=== PATIENT | female | born 1940 | race Caucasian/White ===

== ENCOUNTER 2016-10-10 11:17 | Emergency (ER) | payer MEDICARE, OTHER ==
[2016-10-10] MEDS ORDERED: NS 0.9% 1000 ML* 1,000 ML IV ONE (11:42)
[2016-10-10] MEDS ORDERED: Aspirin Low Dose CHEW TAB* 81 MG PO ONE (11:42)
[2016-10-10 11:50] LABS: Hematocrit 36 % (35-47); Hemoglobin 11.9 g/dl (12.0-16.0); Mean Corpuscular HGB Conc 33 g/dl (31-36); Mean Corpuscular Hemoglobin 27 pg (27-31); Mean Corpuscular Volume 84 fL (80-97); Mean Platelet Volume 9 um3 (7.4-10.4); Red Blood Count 4.34 10^6/ul (4.0-5.4); Red Cell Distribution Width 15 % (10.5-15); White Blood Count 7.8 10^3/ul (3.5-10.8)
[2016-10-10 12:04] LABS: Albumin 3.9 g/dL (3.2-5.2); Calcium 8.4 mg/dL (8.6-10.3); EGFR African American 51.8 (>60); EGFR Non-African American 40.3 (>60); Globulin 3.1 g/dL (2-4); Magnesium 1.4 mg/dL (1.9-2.7); Potassium 3.6 mmol/L (3.5-5.0); Total Bilirubin 0.4 mg/dL (0.2-1.0)
[2016-10-10 12:06] LABS: Troponin I 0.01 ng/mL (<0.04)
--- NOTE | 2016-10-10 12:14 | RAD ---
INDICATION: Chest pain, defibrillator went off. COMPARISON: Comparison is made with a prior chest x-ray study from July 07, 2015. TECHNIQUE: A portable view of the chest was obtained. FINDINGS: The heart is within normal limits in size. There is a cardiac pacemaker defibrillator present. The lungs are clear. No pleural effusion is seen. IMPRESSION: NO EVIDENCE FOR ACUTE DISEASE.
[2016-10-10 12:34] LABS: TSH (Thyroid Stimulating Horm) 0.54 mcIU/mL (0.34-5.60)
[2016-10-10] MEDS ORDERED: Magnesium Oxide TAB* 400 MG PO ONE (14:41)
[2016-10-10] MEDS ORDERED: Potassium Chlor TAB* 20 MEQ TAB.ER PO ONE (14:41)
[2016-10-10] MEDS ORDERED: Potassium Chloride LIQUID* 20 MEQ PACKET PO ONE (14:58)
[2016-10-10 15:28] VITALS: BP 110/60
--- NOTE | 2016-10-10 17:48 | ED ---
jaelyn Hammer Timothy, scribed for David Brasher MD on 10/10/16 at 1205 . HPI Chest Pain - HPI Summary HPI Summary: Christopher Mcgee is a 75 yo female presenting to [facility] after being shocked by her defibrillator at 1100 this morning. She states she was sitting on her couch when it went off. She has had her defibrillator for 7 years, and had it checked recently, within a month. She states she was coughing a lot last night, and has had some nasal discharge. She denies any current CP or SOB, as well as palpitations, leg edema. Her MHx includes DM, defibrillator, DBTS x2, nonspecific cardiomyopathy, cardiac stent 209, HTN, HLD. Her director strategic account management is Dr. Marsh. - History of Current Complaint Chief Complaint: EDDysrhythmPalp Time Seen by Provider: 10/10/16 12:00 Hx Obtained From: Patient Onset/Duration: Started Minutes Ago Time of Onset: 11:00 Timing: Lasting Seconds Initial Severity: Moderate Current Severity: Moderate Chest Pain Location: Mid Sternal Chest Pain Radiates: No Character: Other: - shock Associated Signs and Symptoms: Positive: Chest Pain - Allergy/Home Medications Allergies/Adverse Reactions: Allergies Allergy/AdvReac Type Severity Reaction Status Date / Time No Known Allergies Allergy Verified 10/10/16 11:29 Home Medications: Home Medications Aspirin EC Low Dose* [Ecotrin EC Low Dose 81 MG*] 81 mg PO DAILY 10/10/16 [ History Confirmed 10/10/16] Carvedilol TAB* [Coreg TAB*] 25 mg PO BID 10/10/16 [History Confirmed 10/10/16] PMH/Surg Hx/FS Hx/Imm Hx Cardiovascular History: Reports: Hx Coronary Artery Disease, Hx Hypercholesterolemia, Hx Hypertension, Hx Pacemaker/ICD, Other Cardiovascular Problems/Disorders - stent, nonspecific cardiomyopathy Infectious Disease History: Yes Infectious Disease History: Denies: Traveled Outside the [place] in Last 30 Days - Family History Known Family History: Positive: Cardiac Disease, Hypertension, Diabetes - Social History Alcohol Use: Rare Alcohol Amount: pt denies Substance Use Type: Reports: None Smoking Status (MU): Unknown if Ever Smoked Review of Systems Constitutional: Negative Eyes: Negative Positive: Nasal Discharge Cardiovascular: Other - defibrillator shock Positive: Cough Gastrointestinal: Negative Genitourinary: Negative Musculoskeletal: Negative Skin: Negative Neurological: Negative Psychological: Normal All Other Systems Reviewed And Are Negative: Yes Physical Exam - Summary Physical Exam Summary: The patient is well-nourished in no acute distress and in no acute pain. She appears to be a poor historian. The skin is warm and dry and skin color reflects adequate perfusion. There is decreased skin turgor. HEENT: The head is normocephalic and atraumatic. The pupils are equal and reactive. The conjunctivae are clear and without drainage. Nares are patent and without drainage. Mouth reveals moist mucous membranes and the throat is without erythema and exudate. The external ears are intact. The ear canals are patent and without drainage. The tympanic membranes are intact. Neck is supple with full range of motion and non-tender. There are no carotid bruits. There is no neck vein distension. Respiratory: Chest is non-tender. Lungs are clear to auscultation and decreased breath sounds right base. Cardiovascular: Heart is regular rate and rhythm. There is no murmur or rub auscultated. There is no peripheral edema and pulses are symmetrical and equal. Abdomen: The abdomen is soft, non-tender and obese. There are normal bowel sounds heard in all four quadrants and there is no organomegaly palpated. Musculoskeletal: There is no back pain noted. Extremities are non-tender with full range of motion. There is good capillary refill. There is no peripheral edema or calf tenderness elicited. Neurological: Patient is alert and oriented to person, place and time. The patient has symmetrical motor strength in all four extremities. Cranial nerves are grossly intact. Deep tendon reflexes are symmetrical and equal in all four extremities. Psychiatric: The patient has an appropriate affect and does not exhibit any anxiety or depression. Triage Information Reviewed: Yes Vital Signs On Initial Exam: Initial Vitals Temp Pulse Resp BP Pulse Ox 99.4 F 88 23 119/69 98 10/10/16 11:26 10/10/16 11:26 10/10/16 11:26 10/10/16 11:26 10/10/16 11:26 Vital Signs Reviewed: Yes - [place] Coma Scale Coma Scale Total: 15 Diagnostics - Vital Signs Vital Signs Temp Pulse Resp BP Pulse Ox 10/10/16 11:30 104/57 10/10/16 11:29 90 25 97 10/10/16 11:28 114/68 10/10/16 11:26 99.4 F 88 23 119/69 98 - Laboratory Lab Results: Lab Results 10/10/16 10/10/16 Range/Units 11:35 11:35 WBC 7.8 (3.5-10.8) 10^3/ul RBC 4.34 (4.0-5.4) 10^6/ul Hgb 11.9 L (12.0-16.0) g/dl Hct 36 (35-47) % MCV 84 (80-97) fL MCH 27 (27-31) pg MCHC 33 (31-36) g/dl RDW 15 (10.5-15) % Plt Count 230 (150-450) 10^3/ul MPV 9 (7.4-10.4) um3 Neut % (Auto) 87.3 H (38-83) % Lymph % (Auto) 7.6 L (25-47) % [place] % (Auto) 4.3 (1-9) % Eos % (Auto) 0.4 (0-6) % Baso % (Auto) 0.4 (0-2) % Absolute Neuts (auto) 6.8 (1.5-7.7) 10^3/ul Absolute Lymphs (auto) 0.6 L (1.0-4.8) 10^3/ul Absolute Monos (auto) 0.3 (0-0.8) 10^3/ul Absolute Eos (auto) 0 (0-0.6) 10^3/ul Absolute Basos (auto) 0 (0-0.2) 10^3/ul Absolute Nucleated RBC 0 10^3/ul Nucleated RBC % 0 APTT 25.9 L (26.0-36.3) seconds Result Diagrams: 10/10/16 11:35 10/10/16 11:35 Lab Statement: Any lab studies that have been ordered have been reviewed, and results considered in the medical decision making process. - Radiology CXR Xray Interpretation: No Acute Changes - IMPRESSION: NO EVIDENCE FOR ACUTE DISEASE. Radiology Interpretation Completed By: Radiologist - EKG 1125 Cardiac Rate: NL - 85 BPM EKG Interpretation: NSR @ 85 BPM, left axis. Old inferior wall [place]. PRWP. Re-Evaluation - Re-Evaluation First Eval Re-Evaluation Time: 14:45 Change: Unchanged Comment: Pt is in no current distress. She is agreeable to be discharged. Chest Pain Course/Dx - Course Assessment/Plan: Christopher Mcgee is a 75 yo female presenting o [facility] after her defibrillator fired earlier this morning. After clinical examination and review of her imaging and lab studies, Dr. Ospina (cardiology) was consulted with, who recommended her defibrillator be interrogated. After discussion with Dr. Marsh regarding the interrogation of her defibrillator, she will be discharged home with changes to her medications, a Dx of defibrillator fire and SVT, and appropriate instructions. - Chest Pain Differential Diagnosis/HQI/PQRI: Acute [place], Other: - ventricular tachycardia, svt , hypokalemia, hypomagnesesia - Diagnoses Provider Diagnoses: SVT (supraventricular tachycardia), Defibrillator discharge - Provider Notifications Discussed Care Of Patient With: 1246 - Dr. Ospina (cardiology) - recommends that [facility] present for assessment of the defibrillator. 1434 - Dr. Marsh ( cardiology) - recommends increase of carvedilol to 37.5 mg qam, increase KCl to 20meq qd, increase Mg 400 mg BID. 1544 - [facility] (pharmacy) - Pt cannot swallow pills, changed KCl Rx to be powder Discharge - Discharge Plan Condition: Stable Disposition: HOME Prescriptions: Magnesium Oxide (mg Supplement [Magnesium Oxide] 400 mg PO BID #60 cap Potassium Chlor TAB* [Potassium Chlor TAB 20 MEQ*] 20 meq PO DAILY #30 tab.er Patient Education Materials: Supraventricular Tachycardia (ED), Hypokalemia (ED ), Hypomagnesemia (ED) Referrals: Non Staff,Doctor [Primary Care Provider] - Bj Marsh MD [Medical Doctor] - 1 Week Additional Instructions: Please follow up with Dr. Salma Morales's Physician Tool Storage Attendant, within one week regarding your visit to the emergency department. Return to the emergency department with any new or recurring symptoms. The documentation as recorded by the jaelyn antoine Timothy accurately reflects the service I personally performed and the decisions made by me, David Brasher MD.
== END 2016-10-10 15:35 | disposition home or self-care (01) ==
LOC: ED 11:17
DX: I47.1 Supraventricular tachycardia (principal); R05 Cough; T82.198A Other mechanical complication of other cardiac electronic device, initial encounter
CPT/HCPCS: 36415; 71010; 80053; 82550; 83605; 83735; 83880; 84443; 84484; 85025; 85730; 93005; 99283; A9270-GY

== ENCOUNTER 2022-06-15 11:50 | Inpatient (IN) ==
[2022-06-15] MEDS ORDERED: Iodixanol (CONTRAST) 320 MG/ML 100 ML SDV IV ONE (12:17)
[2022-06-15 12:45] LABS: ABS Eosinophils 0.1 10^3/ul (0-0.6); ABS Lymphocytes 1.7 10^3/ul (1.0-4.8); ABS Monocytes 0.6 10^3/ul (0-0.8); ABS Neutrophils 4.3 10^3/ul (1.5-7.7); Eosinophil % 1.4 %; Hematocrit 29 % (35-47); Hemoglobin 9.6 g/dL (12.0-16.0); Lymphocyte % 25.3 %; Mean Corpuscular HGB Conc 33 g/dL (31-36); Mean Corpuscular Hemoglobin 27 pg (27-31); Mean Corpuscular Volume 81 fL (80-97); Platelet Count 254 10^3/uL (150-450); Red Blood Count 3.61 10^6 /uL (3.70-4.87); Red Cell Distribution Width 17 % (10-15); White Blood Count 6.8 10^3/uL (3.5-10.8)
[2022-06-15 13:32] LABS: Activated Partial Thrombo Time 25.8 seconds (26.0-38.0); INR 0.99 (0.89-1.11)
[2022-06-15 13:37] LABS: Albumin 3.9 g/dL (3.2-5.2); Albumin/Globulin Ratio 1.8 (1-3); Calcium 8.8 mg/dL (8.6-10.3); Globulin 2.2 g/dL (2-4); HDL Cholesterol 42.2 mg/dL; Potassium 3.5 mmol/L (3.5-5.0); Total Bilirubin 0.4 mg/dL (0.2-1.0); Total Protein 6.1 g/dL (6.4-8.9); eGFR CKD-EPI 29.3 (>60)
[2022-06-15 14:29] LABS: Urine Appearance Cloudy; Urine Bilirubin Negative (Negative); Urine Blood Negative (Negative); Urine Color Yellow; Urine Glucose Negative (Negative); Urine Ketones Negative (Negative); Urine Nitrite Negative (Negative); Urine Protein Negative (Negative); Urine Specific Gravity 1.025 (1.002-1.030); Urine Urobilinogen Negative (Negative)
[2022-06-15 14:32] LABS: Urine Bacteria 1+ (Absent); Urine Red Blood Cell Trace(0-2/hpf) (Absent); Urine Squamous Epithelial Cell Present (Absent); Urine White Blood Cell 3+(>20/hpf) (Absent)
[2022-06-15] MEDS: Enoxaparin 30 MG/0.3 ML SYR SUBCUT SCH (16:59)
[2022-06-15] MEDS ORDERED: Dextrose 50% Syringe 50 ml 25 GM/50 ML SYRINGE IV PUSH PRN (19:38)
[2022-06-16 05:47] LABS: ABS Eosinophils 0.1 10^3/ul (0-0.6); ABS Lymphocytes 1.4 10^3/ul (1.0-4.8); ABS Monocytes 0.5 10^3/ul (0-0.8); ABS Neutrophils 3.4 10^3/ul (1.5-7.7); Eosinophil % 2.1 %; Hematocrit 30 % (35-47); Hemoglobin 9.9 g/dL (12.0-16.0); Mean Corpuscular HGB Conc 33 g/dL (31-36); Mean Corpuscular Hemoglobin 27 pg (27-31); Mean Corpuscular Volume 80 fL (80-97); Mean Platelet Volume 8.7 fL (7.4-10.4); Platelet Count 244 10^3/uL (150-450); Red Blood Count 3.73 10^6 /uL (3.70-4.87); Red Cell Distribution Width 17 % (10-15); White Blood Count 5.5 10^3/uL (3.5-10.8)
[2022-06-16 06:08] LABS: Calcium 8.9 mg/dL (8.6-10.3); Magnesium 1.6 mg/dL (1.9-2.7); Potassium 3.7 mmol/L (3.5-5.0); eGFR CKD-EPI 36.8 (>60)
[2022-06-16 06:26] LABS: Ferritin 13.3 ng/mL (11-307)
[2022-06-16] MEDS ORDERED: Magnesium Sulfate IV 3 GM in NS 0.9% 100 ml BAG 100 ML IVPB ONE (07:11)
[2022-06-16] MEDS ORDERED: Aspirin EC 81 mg TAB.EC (enteric coated) PO SCH (09:00)
[2022-06-16] MEDS ORDERED: cefTRIAXone 1 gm/50 mL D5W 1 GM/50 ML BAG IV ONE (14:39)
[2022-06-16] MEDS: Enoxaparin 30 MG/0.3 ML SYR SUBCUT SCH (15:29)
[2022-06-16 16:30] VITALS: BP 137/66
== END 2022-06-16 16:30 | disposition home or self-care (01) | DRG 92 ==
LOC: ED 11:50 → EDHOLD 14:31 → MEDTELE 17:46
PROVIDERS: ADMIT Internal Medicine; ATTEND Internal Medicine

== ENCOUNTER 2022-12-24 12:29 | Inpatient (IN) ==
[2022-12-24 15:50] LABS: ABS Basophils 0.1 10^3/uL (0.0-0.1); ABS Eosinophils 0.1 10^3/uL (0.0-0.5); ABS Lymphocytes 1.6 10^3/uL (1.0-4.8); ABS Monocytes 0.8 10^3/uL (0.0-0.9); ABS Neutrophils 6.4 10^3/uL (1.5-7.6); ABS Nucleated RBC 0.01 10^3/ul; Hematocrit 32.3 % (35-45); Hemoglobin 10.7 g/dL (11.5-14.3); Lymphocyte % 17.8 %; Mean Corpuscular Hemoglobin 25.5 pg (27-33); Mean Corpuscular Volume 77.4 fL (80-97); Mean Platelet Volume 8.3 fL (7.5-11.2); Nucleated Red Blood Cells % 0.1 /100 WBC (0.0-0.4); Platelet Count 195 10^3/uL (150-450); Red Blood Count 4.17 10^6/uL (3.63-4.92); Red Cell Distribution Width 18.1 % (12-17); White Blood Count 9.1 10^3/uL (3.8-11.8)
[2022-12-24 15:55] LABS: INR 1.05 (0.88-1.18)
[2022-12-24 16:18] LABS: Albumin 4.2 g/dL (3.2-5.2); Albumin/Globulin Ratio 1.4 (1-3); Calcium 8.6 mg/dL (8.6-10.3); Creatinine, Serum 1.99 mg/dL (0.51-0.95); Potassium 3.6 mmol/L (3.5-5.0); Total Bilirubin 0.4 mg/dL (0.2-1.0); Total Protein 7.2 g/dL (6.4-8.9); eGFR CKD-EPI 24.6 (>60)
[2022-12-24] MEDS ORDERED: NS 0.9% 1000 ml BAG 1,000 ML IV ONE (17:00)
[2022-12-24 17:25] LABS: High Sensitivity Troponin 1 Hr 7 pg/mL (<15)
[2022-12-24 18:14] LABS: ABS Basophils 0.1 10^3/uL (0.0-0.1); ABS Eosinophils 0.1 10^3/uL (0.0-0.5); ABS Lymphocytes 1.8 10^3/uL (1.0-4.8); ABS Neutrophils 6.3 10^3/uL (1.5-7.6); Eosinophil % 1.1 %; Hematocrit 32.4 % (35-45); Hemoglobin 10.7 g/dL (11.5-14.3); Lymphocyte % 19.3 %; Mean Corpuscular Hemoglobin 25.9 pg (27-33); Mean Corpuscular Hgb Conc 33.1 g/dL (31-36); Mean Corpuscular Volume 78.4 fL (80-97); Mean Platelet Volume 8.3 fL (7.5-11.2); Platelet Count 190 10^3/uL (150-450); Red Blood Count 4.13 10^6/uL (3.63-4.92); White Blood Count 9.2 10^3/uL (3.8-11.8)
[2022-12-24 18:31] LABS: Creatinine, Serum 1.9 mg/dL (0.51-0.95)
[2022-12-24] MEDS: Heparin 5000 UNITS/ML 1 mL VIAL IV SCH (18:52)
[2022-12-24] MEDS: Heparin DRIP 25,000 UNITS BAG 25,000 UNITS/500 ML BAG IV SCH (18:53)
[2022-12-25 07:25] LABS: ABS Basophils 0.1 10^3/uL (0.0-0.1); ABS Eosinophils 0.1 10^3/uL (0.0-0.5); ABS Lymphocytes 1.3 10^3/uL (1.0-4.8); ABS Monocytes 0.6 10^3/uL (0.0-0.9); ABS Neutrophils 5.7 10^3/uL (1.5-7.6); Eosinophil % 1.3 %; Hemoglobin 9.8 g/dL (11.5-14.3); Mean Corpuscular Hemoglobin 26.3 pg (27-33); Mean Corpuscular Hgb Conc 33.6 g/dL (31-36); Mean Corpuscular Volume 78.3 fL (80-97); Mean Platelet Volume 8.4 fL (7.5-11.2); Platelet Count 159 10^3/uL (150-450); Red Cell Distribution Width 18.1 % (12-17); White Blood Count 7.8 10^3/uL (3.8-11.8)
[2022-12-25] MEDS: Heparin 5000 UNITS/ML 1 mL VIAL IV SCH (07:55)
[2022-12-25] MEDS ORDERED: Dextrose 50% Syringe 50 ml 25 GM/50 ML SYRINGE IV PUSH PRN (07:56)
[2022-12-25] MEDS: Heparin DRIP 25,000 UNITS BAG 25,000 UNITS/500 ML BAG IV SCH (18:50)
[2022-12-26 02:52] LABS: ABS Eosinophils 0.1 10^3/uL (0.0-0.5); ABS Lymphocytes 1.6 10^3/uL (1.0-4.8); ABS Monocytes 0.6 10^3/uL (0.0-0.9); ABS Neutrophils 4.8 10^3/uL (1.5-7.6); ABS Nucleated RBC 0.01 10^3/ul; Eosinophil % 1.7 %; Hematocrit 27.8 % (35-45); Hemoglobin 9.3 g/dL (11.5-14.3); Lymphocyte % 22.7 %; Mean Corpuscular Hemoglobin 25.7 pg (27-33); Mean Corpuscular Hgb Conc 33.3 g/dL (31-36); Mean Corpuscular Volume 77.2 fL (80-97); Mean Platelet Volume 8.7 fL (7.5-11.2); Nucleated Red Blood Cells % 0.1 /100 WBC (0.0-0.4); Platelet Count 165 10^3/uL (150-450); Red Blood Count 3.61 10^6/uL (3.63-4.92); Red Cell Distribution Width 18.2 % (12-17); White Blood Count 7.2 10^3/uL (3.8-11.8)
[2022-12-26 03:06] LABS: Creatinine, Serum 1.77 mg/dL (0.51-0.95); eGFR CKD-EPI 28.3 (>60)
[2022-12-26 16:27] LABS: Hematocrit 28.6 % (35-45); Hemoglobin 9.6 g/dL (11.5-14.3)
[2022-12-26] MEDS: Heparin 5000 UNITS/ML 1 mL VIAL IV SCH (16:53)
[2022-12-26 16:56] LABS: Ferritin 36.6 ng/mL (11-307)
[2022-12-26] MEDS: Iron Sucrose 200 MG in NS 0.9% 100 ml IVPB SCH (17:52)
[2022-12-26] MEDS ORDERED: Iron Sucrose 20 MG/ML 5 ML VIAL IV PUSH SCH (18:00)
[2022-12-26] MEDS: Heparin DRIP 25,000 UNITS BAG 25,000 UNITS/500 ML BAG IV SCH (23:39)
[2022-12-27 06:23] LABS: ABS Eosinophils 0.2 10^3/uL (0.0-0.5); ABS Lymphocytes 1.6 10^3/uL (1.0-4.8); ABS Monocytes 0.6 10^3/uL (0.0-0.9); ABS Neutrophils 4.5 10^3/uL (1.5-7.6); Eosinophil % 2.3 %; Hematocrit 28.9 % (35-45); Hemoglobin 9.7 g/dL (11.5-14.3); Mean Corpuscular Hgb Conc 33.4 g/dL (31-36); Mean Corpuscular Volume 77.8 fL (80-97); Mean Platelet Volume 8.8 fL (7.5-11.2); Platelet Count 178 10^3/uL (150-450); Red Blood Count 3.72 10^6/uL (3.63-4.92); Red Cell Distribution Width 18.1 % (12-17); White Blood Count 6.8 10^3/uL (3.8-11.8)
[2022-12-27] MEDS: Iron Sucrose 200 MG in NS 0.9% 100 ml IVPB SCH (09:00)
[2022-12-28] MEDS: Heparin DRIP 25,000 UNITS BAG 25,000 UNITS/500 ML BAG IV SCH (03:54)
[2022-12-28 06:33] LABS: ABS Eosinophils 0.2 10^3/uL (0.0-0.5); ABS Lymphocytes 1.6 10^3/uL (1.0-4.8); ABS Monocytes 0.6 10^3/uL (0.0-0.9); ABS Neutrophils 4.5 10^3/uL (1.5-7.6); Eosinophil % 2.5 %; Hematocrit 29.7 % (35-45); Hemoglobin 9.9 g/dL (11.5-14.3); Mean Corpuscular Hemoglobin 26.2 pg (27-33); Mean Corpuscular Hgb Conc 33.3 g/dL (31-36); Mean Corpuscular Volume 78.7 fL (80-97); Mean Platelet Volume 8.8 fL (7.5-11.2); Platelet Count 212 10^3/uL (150-450); Red Blood Count 3.77 10^6/uL (3.63-4.92); Red Cell Distribution Width 18.9 % (12-17); White Blood Count 6.8 10^3/uL (3.8-11.8)
[2022-12-28 06:59] LABS: Creatinine, Serum 1.66 mg/dL (0.51-0.95); eGFR CKD-EPI 30.6 (>60)
[2022-12-28] MEDS ORDERED: Lidocaine 1% VIAL 10 MG/ML VIAL 30 ML ONE ×2 (07:45→09:40)
[2022-12-28] MEDS ORDERED: Midazolam 5 mg/5 ml VIAL 1 mg/ml 5 ml VIAL (5 mg) ONE (07:45)
[2022-12-28] MEDS ORDERED: Heparin 2 UNITS/ML IVPREMIX 2,000 UNIT/1,000 ML BAG IV ONE (07:45)
[2022-12-28] MEDS ORDERED: Iohexol 350 (CONTRAST) 100 ML PAK IV ONE (07:45)
[2022-12-28] MEDS ORDERED: Heparin 1,000 UNIT/ML 10 ml (10,000 UNITS) CATHLAB/DIALYSIS ONE (07:45)
[2022-12-28] MEDS ORDERED: fentaNYL 100 mcg/2 ml 50 MCG/ML VIAL ONE ×3 (07:45→10:57)
[2022-12-28] MEDS ORDERED: Heparin 2 UNITS/ML IVPREMIX 1,000 UNIT/500 ML BAG IV ONE ×3 (08:04→10:45)
[2022-12-28] MEDS ORDERED: Iodixanol 320 (CONTRAST) 100 ML SDV ONE (08:06)
[2022-12-28] MEDS: Iron Sucrose 200 MG in NS 0.9% 100 ml IVPB SCH (14:11)
[2022-12-28 18:02] VITALS: BP 133/59
== END 2022-12-28 18:56 | disposition home or self-care (01) | DRG 270 ==
LOC: ED 12:29 → EDHOLD 12:29 → SUATTDRO 17:22 → MEDTELE 21:50
PROVIDERS: ADMIT Internal Medicine; ATTEND Internal Medicine

== ENCOUNTER 2023-03-01 09:29 | Observation (INO) ==
[2023-03-01 10:51] LABS: ABS Eosinophils 0.1 10^3/uL (0.0-0.5); ABS Lymphocytes 1.4 10^3/uL (1.0-4.8); ABS Monocytes 0.5 10^3/uL (0.0-0.9); ABS Neutrophils 3.6 10^3/uL (1.5-7.6); ABS Nucleated RBC 0.01 10^3/ul; Eosinophil % 1.3 %; Hematocrit 33.8 % (35-45); Hemoglobin 11.3 g/dL (11.5-14.3); Lymphocyte % 25.3 %; Mean Corpuscular Hemoglobin 28.1 pg (27-33); Mean Corpuscular Hgb Conc 33.4 g/dL (31-36); Mean Corpuscular Volume 84.1 fL (80-97); Mean Platelet Volume 8.4 fL (7.5-11.2); Nucleated Red Blood Cells % 0.1 /100 WBC (0.0-0.4); Platelet Count 221 10^3/uL (150-450); Red Blood Count 4.02 10^6/uL (3.63-4.92); Red Cell Distribution Width 18.4 % (12-17); White Blood Count 5.6 10^3/uL (3.8-11.8)
[2023-03-01 11:04] LABS: Albumin 3.7 g/dL (3.2-5.2); Albumin/Globulin Ratio 1.3 (1-3); Calcium 8.8 mg/dL (8.6-10.3); Creatinine, Serum 1.69 mg/dL (0.51-0.95); Globulin 2.8 g/dL (2-4); Potassium 3.6 mmol/L (3.5-5.0); Total Bilirubin 0.4 mg/dL (0.2-1.0); Total Protein 6.5 g/dL (6.4-8.9)
[2023-03-01 11:05] LABS: INR 1.38 (0.88-1.18)
[2023-03-01 12:03] LABS: High Sensitivity Troponin 1 Hr 6 pg/mL (<15)
[2023-03-01 13:16] LABS: HDL Cholesterol 37.8 mg/dL
[2023-03-01 17:40] LABS: Urine Appearance Clear; Urine Bilirubin Negative (Negative); Urine Blood Negative (Negative); Urine Color Straw; Urine Glucose 3+(>=500 mg/dL) (Negative); Urine Ketones Negative (Negative); Urine Nitrite Negative (Negative); Urine Protein Negative (Negative); Urine Specific Gravity 1.013 (1.002-1.030); Urine Urobilinogen Negative (Negative)
[2023-03-01 17:55] LABS: Urine Bacteria Absent (Absent); Urine Red Blood Cell Absent (Absent); Urine Squamous Epithelial Cell Present (Absent); Urine White Blood Cell Trace(0-5/hpf) (Absent)
[2023-03-02 06:23] LABS: ABS Eosinophils 0.1 10^3/uL (0.0-0.5); ABS Lymphocytes 1.5 10^3/uL (1.0-4.8); ABS Monocytes 0.5 10^3/uL (0.0-0.9); ABS Neutrophils 3.3 10^3/uL (1.5-7.6); ABS Nucleated RBC 0.01 10^3/ul; Eosinophil % 1.8 %; Hemoglobin 10.8 g/dL (11.5-14.3); Lymphocyte % 27.6 %; Mean Corpuscular Hemoglobin 28.1 pg (27-33); Mean Corpuscular Hgb Conc 33.7 g/dL (31-36); Mean Corpuscular Volume 83.2 fL (80-97); Mean Platelet Volume 8.6 fL (7.5-11.2); Nucleated Red Blood Cells % 0.1 /100 WBC (0.0-0.4); Platelet Count 203 10^3/uL (150-450); Red Blood Count 3.84 10^6/uL (3.63-4.92); Red Cell Distribution Width 18.5 % (12-17); White Blood Count 5.5 10^3/uL (3.8-11.8)
[2023-03-02 06:39] LABS: Calcium 8.8 mg/dL (8.6-10.3); Creatinine, Serum 1.61 mg/dL (0.51-0.95); Magnesium 1.6 mg/dL (1.9-2.7); Potassium 3.8 mmol/L (3.5-5.0); eGFR CKD-EPI 31.8 (>60)
[2023-03-03 06:41] LABS: ABS Eosinophils 0.1 10^3/uL (0.0-0.5); ABS Lymphocytes 1.6 10^3/uL (1.0-4.8); ABS Monocytes 0.6 10^3/uL (0.0-0.9); ABS Neutrophils 3.2 10^3/uL (1.5-7.6); Eosinophil % 1.4 %; Hematocrit 34.2 % (35-45); Hemoglobin 11.5 g/dL (11.5-14.3); Lymphocyte % 28.9 %; Mean Corpuscular Hemoglobin 27.9 pg (27-33); Mean Corpuscular Hgb Conc 33.5 g/dL (31-36); Mean Corpuscular Volume 83.2 fL (80-97); Mean Platelet Volume 8.7 fL (7.5-11.2); Platelet Count 205 10^3/uL (150-450); Red Blood Count 4.12 10^6/uL (3.63-4.92); Red Cell Distribution Width 18.6 % (12-17); White Blood Count 5.5 10^3/uL (3.8-11.8)
[2023-03-03 07:01] LABS: Calcium 8.8 mg/dL (8.6-10.3); Creatinine, Serum 1.54 mg/dL (0.51-0.95); Magnesium 1.6 mg/dL (1.9-2.7); Potassium 3.9 mmol/L (3.5-5.0); eGFR CKD-EPI 33.5 (>60)
[2023-03-03] MEDS ORDERED: Magnesium Sulfate 2 gm BAG 2 GM/50 ML BAG IVPB ONE (11:18)
[2023-03-03] MEDS ORDERED: Iodixanol (CONTRAST) 320 MG/ML 100 ML SDV IV ONE (11:54)
[2023-03-03 14:46] VITALS: BP 122/55
== END 2023-03-03 16:50 | disposition home or self-care (01) ==
LOC: ED 09:29 → EDHOLD 09:29 → SUATTDRO 12:02 → MEDTELE 15:54
PROVIDERS: ADMIT Internal Medicine; ATTEND Student in an Organized Health Care Education/Training Program

== ENCOUNTER 2023-07-30 22:46 | Inpatient (IN) ==
[2023-07-31] MEDS ORDERED: Acetaminophen IV 1 GM/100ML 1,000 MG/100 ML BAG IV ONE (00:39)
[2023-07-31 01:25] LABS: ABS Eosinophils 0.1 10^3/uL (0.0-0.5); ABS Lymphocytes 1.8 10^3/uL (1.0-4.8); ABS Monocytes 0.8 10^3/uL (0.0-0.9); ABS Neutrophils 10.9 10^3/uL (1.5-7.6); Eosinophil % 0.4 %; Hematocrit 36.9 % (35-45); Hemoglobin 12.2 g/dL (11.5-14.3); Lymphocyte % 13.3 %; Mean Corpuscular Hemoglobin 27.7 pg (27-33); Mean Corpuscular Hgb Conc 32.9 g/dL (31-36); Mean Corpuscular Volume 84.1 fL (80-97); Mean Platelet Volume 9.3 fL (7.5-11.2); Platelet Count 211 10^3/uL (150-450); Red Blood Count 4.39 10^6/uL (3.63-4.92); White Blood Count 13.6 10^3/uL (3.8-11.8)
[2023-07-31 01:45] LABS: Albumin 4.1 g/dL (3.2-5.2); Albumin/Globulin Ratio 1.3 (1-3); Globulin 3.2 g/dL (2-4); Potassium 3.3 mmol/L (3.5-5.0); Total Bilirubin 0.4 mg/dL (0.2-1.0); Total Protein 7.3 g/dL (6.4-8.9); eGFR CKD-EPI 24.5 (>60)
[2023-07-31] MEDS ORDERED: Lactated Ringers 1000 ml BAG 1,000 ML IV ONE ×2 (01:59→04:53)
[2023-07-31] MEDS ORDERED: Azithromycin 500 mg/250 ml NS 500 MG/250 ML BAG IVPB ONE (02:10)
[2023-07-31] MEDS ORDERED: cefTRIAXone 1 gm/50 mL D5W 1 GM/50 ML BAG IV ONE (02:10)
[2023-07-31] MEDS ORDERED: Dextrose 50% Syringe 50 ml 25 GM/50 ML SYRINGE IV PUSH PRN ×2 (04:42→21:32)
[2023-07-31] MEDS ORDERED: Albuterol/Ipratropium NEB.SOL (2.5/0.5 MG) 3 ML NEB.SOLN INH ONE (04:59)
[2023-07-31 05:07] LABS: Magnesium 2.1 mg/dL (1.9-2.7)
[2023-07-31] MEDS ORDERED: Albuterol HFA INHALER 8 gm MDI INH PRN (05:27)
[2023-07-31] MEDS ORDERED: Potassium Chlor 20 meq TAB.ER PO ONE (05:29)
[2023-07-31] MEDS ORDERED: Furosemide 20 mg/2 ml IV VIAL IV SLOW PU ONE (05:39)
[2023-07-31 06:23] LABS: Activated Partial Thrombo Time 26.3 seconds (26.0-38.0); INR 1.16 (0.83-1.13)
[2023-07-31] MEDS ORDERED: Heparin 5000 UNITS/ML 1 mL VIAL SUBCUT SCH (09:00)
[2023-07-31 10:04] LABS: Urine Appearance Clear; Urine Bilirubin Negative (Negative); Urine Blood Negative (Negative); Urine Color Straw; Urine Glucose 3+(>=500 mg/dL) (Negative); Urine Ketones Negative (Negative); Urine Nitrite Negative (Negative); Urine Protein Negative (Negative); Urine Urobilinogen Negative (Negative)
[2023-07-31] MEDS: HYDROmorphone 0.5 MG/0.5 ML SYRINGE IV SLOW PU PRN ×2 (10:08→22:51)
[2023-07-31] MEDS ORDERED: Furosemide 20 mg/2 ml IV VIAL IV ONE (13:58)
[2023-07-31] MEDS ORDERED: Furosemide 20 mg/2 ml IV VIAL ONE (14:11)
[2023-08-01 06:17] LABS: ABS Eosinophils 0.2 10^3/uL (0.0-0.5); ABS Lymphocytes 1.5 10^3/uL (1.0-4.8); ABS Monocytes 0.6 10^3/uL (0.0-0.9); ABS Neutrophils 8.2 10^3/uL (1.5-7.6); ABS Nucleated RBC 0.01 10^3/ul; Eosinophil % 1.5 %; Hematocrit 33.4 % (35-45); Hemoglobin 11.1 g/dL (11.5-14.3); Lymphocyte % 14.6 %; Mean Corpuscular Hemoglobin 27.8 pg (27-33); Mean Corpuscular Hgb Conc 33.3 g/dL (31-36); Mean Corpuscular Volume 83.5 fL (80-97); Mean Platelet Volume 9.5 fL (7.5-11.2); Platelet Count 159 10^3/uL (150-450); Red Cell Distribution Width 15.7 % (12-17); White Blood Count 10.6 10^3/uL (3.8-11.8)
[2023-08-01 06:35] LABS: Magnesium 1.7 mg/dL (1.9-2.7); eGFR CKD-EPI 24.5 (>60)
[2023-08-01] MEDS ORDERED: Magnesium Sulfate 2 gm BAG 2 GM/50 ML BAG IVPB ONE (07:30)
[2023-08-01] MEDS ORDERED: Potassium EFFERVES 25 meq TAB PO ONE (08:00)
[2023-08-01] MEDS ORDERED: HYDROmorphone 0.5 MG/0.5 ML SYRINGE IV SLOW PU PRN (08:48)
[2023-08-02] MEDS ORDERED: Magnesium Hydroxide LIQ 30 ML UDC PO PRN (03:56)
[2023-08-02] MEDS ORDERED: Polyethylene Glycol 3350 17 GM PACKET PO PRN (03:56)
[2023-08-02] MEDS ORDERED: Senna TAB 8.6 mg TAB PO PRN (03:56)
[2023-08-02 06:57] LABS: ABS Eosinophils 0.2 10^3/uL (0.0-0.5); ABS Lymphocytes 1.5 10^3/uL (1.0-4.8); ABS Monocytes 0.5 10^3/uL (0.0-0.9); ABS Neutrophils 5.4 10^3/uL (1.5-7.6); Hematocrit 31.4 % (35-45); Hemoglobin 10.5 g/dL (11.5-14.3); Lymphocyte % 19.7 %; Mean Corpuscular Hemoglobin 27.9 pg (27-33); Mean Corpuscular Hgb Conc 33.5 g/dL (31-36); Mean Corpuscular Volume 83.1 fL (80-97); Mean Platelet Volume 9.5 fL (7.5-11.2); Platelet Count 157 10^3/uL (150-450); Red Blood Count 3.78 10^6/uL (3.63-4.92); Red Cell Distribution Width 15.7 % (12-17); White Blood Count 7.5 10^3/uL (3.8-11.8)
[2023-08-02 07:05] LABS: Calcium 8.2 mg/dL (8.6-10.3); Creatinine, Serum 1.81 mg/dL (0.51-0.95); Magnesium 2.4 mg/dL (1.9-2.7); Potassium 3.3 mmol/L (3.5-5.0); eGFR CKD-EPI 27.6 (>60)
[2023-08-02] MEDS ORDERED: Potassium EFFERVES 25 meq TAB PO ONE (07:29)
[2023-08-02] MEDS: Nystatin TOP POWDER 15 GM BTL TOPICAL SCH (10:00)
[2023-08-03] MEDS: Nystatin TOP POWDER 15 GM BTL TOPICAL SCH ×2 (01:50→10:42)
[2023-08-03 06:35] LABS: ABS Eosinophils 0.2 10^3/uL (0.0-0.5); ABS Lymphocytes 1.6 10^3/uL (1.0-4.8); ABS Monocytes 0.5 10^3/uL (0.0-0.9); ABS Neutrophils 4.9 10^3/uL (1.5-7.6); ABS Nucleated RBC 0.01 10^3/ul; Eosinophil % 2.4 %; Hematocrit 31.7 % (35-45); Hemoglobin 10.8 g/dL (11.5-14.3); Lymphocyte % 21.8 %; Mean Corpuscular Hemoglobin 28.2 pg (27-33); Mean Corpuscular Hgb Conc 33.9 g/dL (31-36); Mean Corpuscular Volume 83.3 fL (80-97); Mean Platelet Volume 9.7 fL (7.5-11.2); Nucleated Red Blood Cells % 0.1 %/100WBC (0.0-0.8); Platelet Count 168 10^3/uL (150-450); Red Blood Count 3.81 10^6/uL (3.63-4.92); Red Cell Distribution Width 16.4 % (12-17); White Blood Count 7.2 10^3/uL (3.8-11.8)
[2023-08-03 06:51] LABS: Calcium 8.4 mg/dL (8.6-10.3); Creatinine, Serum 1.6 mg/dL (0.51-0.95)
[2023-08-03 11:15] VITALS: BP 110/70
== END 2023-08-03 13:45 | disposition home or self-care (01) | DRG 535 ==
LOC: ED 22:46 → EDHOLD 07-31 03:19 → SUATTDRO 07-31 03:19 → SSU 07-31 07:42 → MED 08-01 18:45
PROVIDERS: ADMIT Internal Medicine; ATTEND Hospitalist

== ENCOUNTER 2023-10-13 14:27 | Observation (INO) ==
[2023-10-13 15:48] LABS: Urine Appearance Turbid; Urine Bilirubin Negative (Negative); Urine Blood 1+ (Negative); Urine Color Yellow; Urine Glucose Negative (Negative); Urine Ketones Negative (Negative); Urine Nitrite Negative (Negative); Urine Protein Trace (Negative); Urine Urobilinogen Negative (Negative); Urine pH 5.5 (5.0-8.0)
[2023-10-13 15:56] LABS: Urine Bacteria 3+ /HPF (Absent); Urine Red Blood Cell 2+(6-10/hpf) /HPF (0-Trace); Urine Squamous Epithelial Cell Present /HPF (Absent); Urine White Blood Cell 3+(>20/hpf) /HPF (0-Trace)
[2023-10-13] MEDS: cefTRIAXone 1 gm/50 mL D5W 1 GM/50 ML BAG IV ONE (17:27)
[2023-10-13] MEDS: NS 0.9% 500 ml BAG 500 ML IV ONE (17:28)
[2023-10-13] MEDS: Albuterol/Ipratropium NEB.SOL (2.5/0.5 MG) 3 ML NEB.SOLN INH ONE (18:16)
[2023-10-13 19:10] LABS: ABS Basophils 0.1 10^3/uL (0.0-0.1); ABS Eosinophils 0.2 10^3/uL (0.0-0.5); ABS Lymphocytes 2.5 10^3/uL (1.0-4.8); ABS Monocytes 0.7 10^3/uL (0.0-0.9); ABS Neutrophils 6.2 10^3/uL (1.5-7.6); ABS Nucleated RBC 0.03 10^3/ul; Eosinophil % 2.4 %; Hematocrit 31.8 % (35-45); Hemoglobin 10.5 g/dL (11.5-14.3); Lymphocyte % 25.4 %; Mean Corpuscular Hgb Conc 32.9 g/dL (31-36); Mean Platelet Volume 8.5 fL (7.5-11.2); Nucleated Red Blood Cells % 0.3 %/100WBC (0.0-0.8); Platelet Count 269 10^3/uL (150-450); Red Blood Count 3.88 10^6/uL (3.63-4.92); Red Cell Distribution Width 15.9 % (12-17); White Blood Count 9.7 10^3/uL (3.8-11.8)
[2023-10-13 19:23] LABS: High Sens Troponin Baseline 7 pg/mL (<15)
[2023-10-13 20:04] LABS: ALT 13 U/L (7-52); AST 16 U/L (13-39); Albumin 3.5 g/dL (3.2-5.2); Albumin/Globulin Ratio 1.2 (1-3); Alkaline Phosphatase 131 U/L (35-149); Anion Gap 10 mmol/L (2-16); Blood Urea Nitrogen 34 mg/dL (6-24); C Reactive Protein 98.34 mg/L (<8.01); CO2 Carbon Dioxide 29 mmol/L (22-32); Chloride 103 mmol/L (101-111); Creatinine, Serum 1.51 mg/dL (0.51-0.95); Globulin 2.9 g/dL (2-4); Glucose 109 mg/dL (70-100); Magnesium 1.5 mg/dL (1.9-2.7); Phosphorus 3.5 mg/dL (2.5-5.0); Potassium 3.3 mmol/L (3.5-5.0); Sodium 142 mmol/L (135-145); Total Bilirubin 0.3 mg/dL (0.2-1.0); Total Protein 6.4 g/dL (6.4-8.9); eGFR CKD-EPI 34.3 (>60)
[2023-10-13 20:40] LABS: High Sensitivity Troponin 1 Hr 7 pg/mL (<15)
[2023-10-13] MEDS: Acetaminophen IV 1 GM/100ML 1,000 MG/100 ML BAG IV ONE (21:10)
[2023-10-13 22:40] LABS: TSH Ultra Thyroid Stim Horm 1.68 mcIU/mL (0.34-5.60)
[2023-10-13 22:51] LABS: Vitamin B12 454 pg/mL (180-914)
[2023-10-13 22:54] LABS: Vitamin D Total 25(OH) 42.4 ng/mL (20-50)
[2023-10-13] MEDS ORDERED: Dextrose 50% Syringe 50 ml 25 GM/50 ML SYRINGE IV PUSH PRN (23:51)
[2023-10-13] MEDS ORDERED: Albuterol HFA INHALER 8 gm MDI INH PRN (23:51)
[2023-10-14 01:05] LABS: % Iron Saturation 6 % (15-55); .Transferrin 233 mg/dL (203-362); Iron < 20 ug/dL (50-212); Total Iron Binding Capacity 326 mcg/dL (250-450); Unsaturated Iron Binding 306 ug/dL
[2023-10-14] MEDS: Lactated Ringers 1000 ml BAG 1,000 ML IV SCH (01:10)
[2023-10-14 01:26] LABS: Ferritin 66.2 ng/mL (11-307)
[2023-10-14] MEDS: Magnesium Sulf 4 GM/100 ML IV 4,000 MG/100 ML BAG IVPB ONE (04:46)
[2023-10-14] MEDS: Potassium Chlor 20 meq TAB.ER PO ONE (04:51)
[2023-10-14] MEDS: Ferric Gluconate IV 250 MG in NS 0.9% 250 ml 200 ML IVPB SCH ×2 (06:31→09:38)
[2023-10-14 06:43] LABS: ABS Eosinophils 0.2 10^3/uL (0.0-0.5); ABS Lymphocytes 1.7 10^3/uL (1.0-4.8); ABS Monocytes 0.5 10^3/uL (0.0-0.9); ABS Neutrophils 4.4 10^3/uL (1.5-7.6); ABS Nucleated RBC 0.02 10^3/ul; Eosinophil % 2.9 %; Hematocrit 32.4 % (35-45); Hemoglobin 10.2 g/dL (11.5-14.3); Lymphocyte % 25.2 %; Mean Corpuscular Hemoglobin 27.1 pg (27-33); Mean Corpuscular Hgb Conc 31.7 g/dL (31-36); Mean Corpuscular Volume 85.6 fL (80-97); Mean Platelet Volume 8.5 fL (7.5-11.2); Nucleated Red Blood Cells % 0.2 %/100WBC (0.0-0.8); Platelet Count 227 10^3/uL (150-450); Red Blood Count 3.78 10^6/uL (3.63-4.92); Red Cell Distribution Width 16.4 % (12-17); White Blood Count 6.9 10^3/uL (3.8-11.8)
[2023-10-14 06:51] LABS: Calcium 7.8 mg/dL (8.6-10.3); Creatinine, Serum 1.39 mg/dL (0.51-0.95); Potassium 3.1 mmol/L (3.5-5.0); eGFR CKD-EPI 37.9 (>60)
[2023-10-14] MEDS: Insulin GLARGINE 100 un/ml 10 ml VIAL SUBCUT SCH (08:16)
[2023-10-14] MEDS: Potassium Chloride LIQUID 20 MEQ/15 ML LIQUID PO ONE (08:17)
[2023-10-14 08:22] LABS: Magnesium 1.7 mg/dL (1.9-2.7)
[2023-10-14] MEDS: Magnesium Sulfate 2 gm BAG 2 GM/50 ML BAG IVPB ONE (16:04)
[2023-10-14] MEDS: cefTRIAXone 1 gm/50 mL D5W 1 GM/50 ML BAG IV SCH (17:08)
[2023-10-14] MEDS: Enoxaparin 80 MG/0.8 ML SYR SUBCUT SCH (20:46)
[2023-10-15 09:07] LABS: Calcium 8.7 mg/dL (8.6-10.3); Creatinine, Serum 1.32 mg/dL (0.51-0.95); Magnesium 2.5 mg/dL (1.9-2.7); Potassium 4.1 mmol/L (3.5-5.0); eGFR CKD-EPI 40.3 (>60)
[2023-10-15] MEDS: guaiFENesin 100 mg/5 ml LIQ unit dose cup PO PRN (12:58)
[2023-10-15 13:34] VITALS: BP 127/81
== END 2023-10-15 14:10 | disposition home or self-care (01) ==
LOC: ED 14:27 → EDHOLD 14:27 → MEDTELE 22:29
PROVIDERS: ADMIT Student in an Organized Health Care Education/Training Program; ATTEND Hospitalist

== ENCOUNTER 2023-12-17 16:18 | Observation (INO) ==
[2023-12-17 17:58] LABS: ABS Eosinophils 0.3 10^3/uL (0.0-0.5); ABS Lymphocytes 2.1 10^3/uL (1.0-4.8); ABS Monocytes 0.6 10^3/uL (0.0-0.9); ABS Neutrophils 3.5 10^3/uL (1.5-7.6); Eosinophil % 3.9 %; Hematocrit 35.8 % (35-45); Hemoglobin 11.9 g/dL (11.5-14.3); Lymphocyte % 32.1 %; Mean Corpuscular Hemoglobin 27.6 pg (27-33); Mean Corpuscular Hgb Conc 33.2 g/dL (31-36); Mean Corpuscular Volume 83.1 fL (80-97); Mean Platelet Volume 8.8 fL (7.5-11.2); Nucleated Red Blood Cells % 0.1 %/100WBC (0.0-0.8); Platelet Count 229 10^3/uL (150-450); Red Blood Count 4.31 10^6/uL (3.63-4.92); Red Cell Distribution Width 17.2 % (12-17); White Blood Count 6.5 10^3/uL (3.8-11.8)
[2023-12-17] MEDS: Albuterol (2.5 MG) 0.5 % CONC 0.5 ML NEB.SOLN INH ONE (18:40)
[2023-12-17 18:54] LABS: Albumin 3.9 g/dL (3.2-5.2); Albumin/Globulin Ratio 1.3 (1-3); C Reactive Protein 9.94 mg/L (<8.01); Calcium 8.8 mg/dL (8.6-10.3); Creatinine, Serum 1.62 mg/dL (0.51-0.95); Globulin 2.9 g/dL (2-4); Total Bilirubin 0.3 mg/dL (0.2-1.0); Total Protein 6.8 g/dL (6.4-8.9); eGFR CKD-EPI 31.3 (>60)
[2023-12-17 19:10] LABS: Potassium 3.6 mmol/L (3.5-5.0)
[2023-12-17 19:24] LABS: High Sensitivity Troponin 1 Hr 10 pg/mL (<15)
[2023-12-17] MEDS: Iodixanol (CONTRAST) 320 MG/ML 100 ML SDV IV ONE (19:40)
[2023-12-18] MEDS: Furosemide 40 mg/4 ml IV VIAL IV SLOW PU ONE (00:09)
[2023-12-18] MEDS ORDERED: Polyethylene Glycol 3350 17 GM PACKET PO PRN (00:14)
[2023-12-18] MEDS ORDERED: Senna TAB 8.6 mg TAB PO PRN (00:14)
[2023-12-18] MEDS ORDERED: Albuterol HFA INHALER 8 gm MDI INH PRN (00:34)
[2023-12-18] MEDS: guaiFENesin 100 mg/5 ml LIQ unit dose cup PO PRN (02:47)
[2023-12-18 08:45] LABS: ABS Eosinophils 0.3 10^3/uL (0.0-0.5); ABS Lymphocytes 1.7 10^3/uL (1.0-4.8); ABS Monocytes 0.5 10^3/uL (0.0-0.9); ABS Neutrophils 3.6 10^3/uL (1.5-7.6); Eosinophil % 4.5 %; Hematocrit 34.1 % (35-45); Hemoglobin 11.3 g/dL (11.5-14.3); Lymphocyte % 27.7 %; Mean Corpuscular Hemoglobin 26.9 pg (27-33); Mean Corpuscular Volume 81.6 fL (80-97); Mean Platelet Volume 8.3 fL (7.5-11.2); Nucleated Red Blood Cells % 0.1 %/100WBC (0.0-0.8); Platelet Count 230 10^3/uL (150-450); Red Blood Count 4.18 10^6/uL (3.63-4.92); Red Cell Distribution Width 17.2 % (12-17); White Blood Count 6.1 10^3/uL (3.8-11.8)
[2023-12-18] MEDS ORDERED: Furosemide 40 mg/4 ml IV VIAL IV SCH (09:00)
[2023-12-18 09:20] LABS: Calcium 8.8 mg/dL (8.6-10.3); Creatinine, Serum 1.43 mg/dL (0.51-0.95); Magnesium 1.7 mg/dL (1.9-2.7); Potassium 3.6 mmol/L (3.5-5.0); eGFR CKD-EPI 36.4 (>60)
[2023-12-18] MEDS: Furosemide 40 mg/4 ml IV VIAL IV ONE (09:40)
[2023-12-18] MEDS: Nystatin TOP POWDER 15 GM BTL TOPICAL SCH (09:47)
[2023-12-18 13:59] VITALS: BP 99/70
== END 2023-12-18 15:22 | disposition home or self-care (01) ==
LOC: ED 16:18 → EDHOLD 16:18 → SUATTDRO 22:37 → MED 12-18 01:38
PROVIDERS: ADMIT Internal Medicine; ATTEND Internal Medicine

== ENCOUNTER 2024-04-29 11:55 | Observation (INO) ==
[2024-04-29] MEDS: Iodixanol (CONTRAST) 320 MG/ML 100 ML SDV IV ONE (12:25)
[2024-04-29 12:28] LABS: ABS Eosinophils 0.1 10^3/uL (0.0-0.5); ABS Lymphocytes 1.6 10^3/uL (1.0-4.8); ABS Monocytes 0.4 10^3/uL (0.0-0.9); Eosinophil % 1.9 %; Hematocrit 36.6 % (35-45); Lymphocyte % 26.4 %; Mean Corpuscular Hemoglobin 27.9 pg (27-33); Mean Corpuscular Hgb Conc 32.7 g/dL (31-36); Mean Corpuscular Volume 85.3 fL (80-97); Mean Platelet Volume 8.9 fL (7.5-11.2); Platelet Count 202 10^3/uL (150-450); Red Blood Count 4.29 10^6/uL (3.63-4.92); Red Cell Distribution Width 17.4 % (12-17); White Blood Count 6.2 10^3/uL (3.8-11.8)
[2024-04-29 12:43] LABS: Activated Partial Thrombo Time 33.8 seconds (26.0-38.0); INR 1.64 (0.85-1.14)
[2024-04-29 13:16] LABS: Urine Appearance Clear; Urine Bilirubin Negative (Negative); Urine Blood Negative (Negative); Urine Color Colorless; Urine Glucose 3+ (>=300 mg/dL) (Negative); Urine Ketones Negative (Negative); Urine Nitrite Negative (Negative); Urine Protein Negative (Negative); Urine Specific Gravity 1.014 (1.002-1.030); Urine Urobilinogen Negative (Negative); Urine pH 5.5 (5.0-8.0)
[2024-04-29 13:17] LABS: Albumin 3.7 g/dL (3.2-5.2); Albumin/Globulin Ratio 1.4 (1-3); Calcium 8.8 mg/dL (8.6-10.3); Creatinine, Serum 1.62 mg/dL (0.51-0.95); Direct Bilirubin 0.1 mg/dL (0.03-0.18); Globulin 2.7 g/dL (2-4); HDL Cholesterol 37.8 mg/dL; Indirect Bilirubin 0.3 mg/dL (0.3-1.0); Potassium 4.2 mmol/L (3.5-5.0); Total Bilirubin 0.4 mg/dL (0.2-1.0); Total Protein 6.4 g/dL (6.4-8.9); eGFR CKD-EPI 31.3 (>60)
[2024-04-29 13:21] LABS: Urine Bacteria Absent /HPF (Absent); Urine Red Blood Cell Trace(0-2/hpf) /HPF (0-Trace); Urine Squamous Epithelial Cell Present /HPF (Absent); Urine White Blood Cell 2+(11-20/hpf) /HPF (0-Trace)
[2024-04-29] MEDS ORDERED: Ondansetron 4 mg VIAL 2 MG/ML 2 ml VIAL IV PRN (17:12)
[2024-04-29] MEDS ORDERED: Senna TAB 8.6 mg TAB PO PRN (17:12)
[2024-04-29] MEDS ORDERED: Polyethylene Glycol 3350 17 GM PACKET PO PRN (17:12)
[2024-04-29] MEDS ORDERED: Albuterol HFA INHALER 8 gm MDI INH PRN (17:26)
[2024-04-29] MEDS ORDERED: Mometasone/Formoter 200/5 MDI INH PRN (17:26)
[2024-04-29] MEDS ORDERED: Fluticasone NASAL SPRAY 50MCG 16 gm SPRAY BTL INTRANASAL PRN (17:26)
[2024-04-29 18:02] LABS: Urine Appearance Clear; Urine Bilirubin Negative (Negative); Urine Blood Negative (Negative); Urine Color Colorless; Urine Glucose Negative (Negative); Urine Ketones Negative (Negative); Urine Nitrite Negative (Negative); Urine Protein Negative (Negative); Urine Specific Gravity 1.023 (1.002-1.030); Urine Urobilinogen Negative (Negative); Urine pH 5.5 (5.0-8.0)
[2024-04-30 07:40] LABS: Anion Gap 13 mmol/L (2-16); Blood Urea Nitrogen 26 mg/dL (6-24); CO2 Carbon Dioxide 28 mmol/L (22-32); Calcium 8.3 mg/dL (8.6-10.3); Chloride 104 mmol/L (101-111); Creatinine, Serum 1.61 mg/dL (0.51-0.95); Glucose 146 mg/dL (70-100); Sodium 145 mmol/L (135-145); eGFR CKD-EPI 31.6 (>60)
[2024-05-01 09:43] VITALS: BP 127/77
== END 2024-05-01 15:30 | disposition home or self-care (01) ==
LOC: ED 11:55 → EDHOLD 11:55 → SUATTDRO 17:12 → MED 04-30 08:45
PROVIDERS: ADMIT Family Medicine; ATTEND Internal Medicine